=== PATIENT | female | born 1940 | race Caucasian/White ===

== ENCOUNTER 2016-06-12 11:58 | Outpatient (CLI) | payer MEDICARE, OTHER ==
[2016-06-12 13:01] LABS: Anion Gap 14 mmol/L (10-20); BUN (Urea Nitrogen) 26 mg/dL (9.8-20.1); Calc. Creatinine Clearance 0 mL/min (70-130); Calcium 9.2 mg/dL (7.8-10.44); Carbon Dioxide 30 mmol/L (23-31); Chloride 102 mmol/L (98-107); Estimated GFR-MDRD 25; Glucose 97 mg/dL (83-110); Potassium 3.6 mmol/L (3.5-5.1); Sodium 142 mmol/L (136-145)
== END 2016-06-12 11:59 | disposition home or self-care (01) ==
LOC: MADLAB 11:58
PROVIDERS: ATTEND Internal Medicine Nephrology
DX: N18.3 Chronic kidney disease, stage 3 (moderate) (principal)
CPT/HCPCS: 36415; 80048

== ENCOUNTER 2016-08-06 14:51 | Outpatient (CLI) | payer MEDICARE, OTHER ==
[2016-08-06 15:28] LABS: #Basophils 0.1 thou/uL (0.0-0.2); #Eosinphils 0.1 thou/uL (0.0-0.7); #Lymphocytes 1.8 thou/uL (1.20-3.40); #Monocytes 0.5 thou/uL (0.11-0.59); #Neutrophils 5.5 thou/uL (1.40-6.50); %Basophils 0.7 % (0.0-1.0); %Lymphocytes 22.4 % (21.0-51.0); %Monocytes 6.7 % (0.0-10.0); %Neutrophils 69.2 % (42.0-75.0); Hemoglobin 13.8 g/dL (12.0-16.0); Mean Corpuscular HGB CONC 32.8 g/dL (32.0-36.0); Mean Corpuscular Hemoglobin 32.6 pg (27.0-31.0); Mean Corpuscular Volume 99.1 fl (81.0-99.0); Mean Platelet Volume 6.3 fL (7.4-10.4); Platelet Count 275 thou/uL (130-400); RBC Distribution Width 12.7 % (11.5-14.5); Red Blood Cell (RBC) Count 4.23 mill/uL (4.20-5.40); White Blood Cell (WBC) Count 7.9 thou/uL (4.8-10.8)
[2016-08-06 15:33] LABS: Anion Gap 16 mmol/L (10-20); BUN (Urea Nitrogen) 26 mg/dL (9.8-20.1); Calc. Creatinine Clearance 0 mL/min (70-130); Calcium 9.7 mg/dL (7.8-10.44); Carbon Dioxide 28 mmol/L (23-31); Chloride 103 mmol/L (98-107); Estimated GFR-MDRD 26; Glucose 151 mg/dL (83-110); Phosphorus 3.7 mg/dL (2.3-4.7); Potassium 4.5 mmol/L (3.5-5.1); Sodium 142 mmol/L (136-145)
== END 2016-08-06 14:52 | disposition home or self-care (01) ==
LOC: MADLAB 14:51
PROVIDERS: ATTEND Internal Medicine Nephrology
DX: N18.4 Chronic kidney disease, stage 4 (severe) (principal)
CPT/HCPCS: 36415; 80048; 83970; 84100; 85025

== ENCOUNTER 2016-12-10 15:28 | Outpatient (CLI) | payer MEDICARE, OTHER ==
[2016-12-10 15:54] LABS: Anion Gap 19 mmol/L (10-20); BUN (Urea Nitrogen) 22 mg/dL (9.8-20.1); Calc. Creatinine Clearance 0 mL/min (70-130); Calcium 9.1 mg/dL (7.8-10.44); Carbon Dioxide 22 mmol/L (23-31); Chloride 104 mmol/L (98-107); Estimated GFR-MDRD 28; Glucose 95 mg/dL (83-110); Potassium 4.6 mmol/L (3.5-5.1); Sodium 140 mmol/L (136-145)
== END 2016-12-10 15:29 | disposition home or self-care (01) ==
LOC: MADLAB 15:28
PROVIDERS: ATTEND Internal Medicine Nephrology
DX: N18.4 Chronic kidney disease, stage 4 (severe) (principal)
CPT/HCPCS: 36415; 80048; 83970

== ENCOUNTER 2017-07-09 15:09 | Outpatient (CLI) | payer MEDICARE, OTHER ==
[2017-07-09 16:23] LABS: Anion Gap 15 mmol/L (10-20); BUN (Urea Nitrogen) 15 mg/dL (9.8-20.1); Calc. Creatinine Clearance 0 mL/min (70-130); Calcium 9.1 mg/dL (7.8-10.44); Carbon Dioxide 27 mmol/L (23-31); Chloride 102 mmol/L (98-107); Estimated GFR-MDRD 36; Glucose 146 mg/dL (83-110); Potassium 3.4 mmol/L (3.5-5.1); Sodium 141 mmol/L (136-145)
== END 2017-07-09 15:10 | disposition home or self-care (01) ==
LOC: MADLAB 15:09
PROVIDERS: ATTEND Internal Medicine Nephrology
DX: N18.3 Chronic kidney disease, stage 3 (moderate) (principal)
CPT/HCPCS: 36415; 80048

== ENCOUNTER 2018-02-12 08:41 | Outpatient (CLI) | payer MEDICARE, OTHER ==
--- NOTE | 2018-02-12 11:17 | ULT ---
COMPLETE BILATERAL RENAL ULTRASOUND: HISTORY: A 77-year-old female with a history of chronic kidney disease and back pain for six months. FINDINGS: The right kidney measures 7.6 x 3.1 x 3.3 cm. The left kidney measures 8.6 x 4.5 x 4.1 cm. No renal hydronephrosis. The bladder is nearly empty. Minimal diffuse cortical loss of both kidneys, partic ularly inferiorly. IMPRESSION: 1. No renal hydronephrosis. 2. Small, nearly empty bladder. POS: [facility]
== END 2018-02-12 08:42 | disposition home or self-care (01) ==
LOC: MADULT 08:41
PROVIDERS: ATTEND Internal Medicine Nephrology
DX: M54.9 Dorsalgia, unspecified (principal); N18.4 Chronic kidney disease, stage 4 (severe)
CPT/HCPCS: 76770

== ENCOUNTER 2018-03-09 17:42 | Emergency (ER) | payer MEDICARE, OTHER ==
[2018-03-09] MEDS ORDERED: Acetaminophen 500 MG TAB ONE (18:33)
[2018-03-09] MEDS ORDERED: Acetaminophen/Codeine 30-300mg Tablet ONE (18:33)
--- NOTE | 2018-03-09 19:02 | RAD ---
RADIOGRAPH LEFT HAND THREE VIEWS: History: 77-year-old female status post-acute traumatic injury to the left hand. 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 No fracture or dislocation. IMPRESSION: 1. 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 2. Otherwise normal. POS: [facility]
== END 2018-03-09 18:40 | disposition home or self-care (01) ==
LOC: MADERS 17:42
DX: S66.912A Strain of unspecified muscle, fascia and tendon at wrist and hand level, left hand, initial encounter (principal); K21.9 Gastro-esophageal reflux disease without esophagitis; E78.5 Hyperlipidemia, unspecified; I10 Essential (primary) hypertension; E27.40 Unspecified adrenocortical insufficiency; Z79.899 Other long term (current) drug therapy; X58.XXXA Exposure to other specified factors, initial encounter

== ENCOUNTER 2019-03-06 17:11 | Emergency (ER) | payer MEDICARE, OTHER ==
--- NOTE | 2019-03-06 18:27 | RAD ---
PORTABLE CHEST: 03/06/19 HISTORY: Syncope. Heart size appears slightly enlarged with atherosclerotic changes of the aorta. The lungs are clear o f any infiltrative process. No signs of failure. IMPRESSION: Mild cardiomegaly. POS: [facility]
== END 2019-03-06 18:43 | disposition home or self-care (01) ==
LOC: MADERS 17:11
DX: R53.1 Weakness (principal); K21.9 Gastro-esophageal reflux disease without esophagitis; E78.5 Hyperlipidemia, unspecified; E78.00 Pure hypercholesterolemia, unspecified; I10 Essential (primary) hypertension; E27.40 Unspecified adrenocortical insufficiency; Z79.899 Other long term (current) drug therapy; Z79.82 Long term (current) use of aspirin
CPT/HCPCS: 71045; 93005

== ENCOUNTER 2019-08-08 05:54 | Emergency (ER) | payer MEDICARE, OTHER ==
[2019-08-08] MEDS ORDERED: Acetaminophen 325 MG TAB ONE (06:31)
[2019-08-08] MEDS ORDERED: Metoprolol Tartrate 50 MG TAB ONE (07:50)
[2019-08-08] MEDS ORDERED: Aspirin Chewable 81 MG TAB ONE (07:50)
[2019-08-08] MEDS ORDERED: Furosemide 40 MG/4 ML VIAL ONE (07:50)
[2019-08-08 07:53] LABS: ALT (SGPT) 8 U/L (8-55); AST (SGOT) 15 U/L (5-34); Albumin 3.8 g/dL (3.4-4.8); Alkaline Phosphatase 51 U/L (40-110); Anion Gap 14 mmol/L (10-20); BUN (Urea Nitrogen) 15 mg/dL (9.8-20.1); Bilirubin, Total 0.7 mg/dL (0.2-1.2); Calc. Creatinine Clearance 0 mL/min (70-130); Calcium 8.6 mg/dL (7.8-10.44); Carbon Dioxide 26 mmol/L (23-31); Chloride 103 mmol/L (98-107); Estimated GFR-MDRD 34; Globulin 2.4 g/dL (2.4-3.5); Glucose 78 mg/dL (83-110); Potassium 3.6 mmol/L (3.5-5.1); Protein, Total 6.2 g/dL (6.0-8.3); Sodium 139 mmol/L (136-145)
[2019-08-08 07:55] LABS: Eosinophils 1 % (0-10); Hemoglobin 11.9 g/dL (12.0-16.0); Lymphocytes 16 % (21-51); MDiff Complete? YES; Mean Corpuscular HGB CONC 32.2 g/dL (32.0-36.0); Mean Corpuscular Hemoglobin 32.5 pg (27.0-31.0); Mean Corpuscular Volume 101.1 fL (78.0-98.0); Mean Platelet Volume 6.3 fL (7.4-10.4); Monocytes 8 % (0-10); Myelocyte 1 % (0-0); Neutrophil 64 % (42-75); Platelet Count 218 thou/uL (130-400); Platelet Morphology Comment Appears Adequate; RBC Distribution Width 13.1 % (11.5-14.5); Reactive Lymphocytes 10 % (0-10); Red Blood Cell (RBC) Count 3.67 mill/uL (4.20-5.40); White Blood Cell (WBC) Count 9.5 thou/uL (4.8-10.8)
[2019-08-08 08:02] LABS: CKMB 2.3 ng/mL (0-6.6)
[2019-08-08] MEDS ORDERED: Enoxaparin Sodium 80 MG/0.8 ML SYRINGE ONE ×2 (08:11→08:12)
--- NOTE | 2019-08-08 08:43 | RAD ---
PORTABLE CHEST: Date: 08/08/2019 HISTORY: Cough. COMPARISON: 03/06/19. FINDINGS/IMPRESSION: Mild cardiomegaly. Vascular and interstitial markings are prominent. Findings may represent mild inte rstitial congestion. No confluent infiltrate. I cannot exclude small effusions. POS: [facility]
== END 2019-08-08 08:36 | disposition home or self-care (01) ==
LOC: MADERS 05:54
DX: I21.4 Non-ST elevation (NSTEMI) myocardial infarction (principal); J20.9 Acute bronchitis, unspecified; K21.9 Gastro-esophageal reflux disease without esophagitis; E78.5 Hyperlipidemia, unspecified; E78.00 Pure hypercholesterolemia, unspecified; I10 Essential (primary) hypertension; E27.40 Unspecified adrenocortical insufficiency; Z79.899 Other long term (current) drug therapy; Z79.82 Long term (current) use of aspirin
CPT/HCPCS: 36415; 71045; 80053; 82550; 82553; 83605; 83880; 84484; 85025; 87040; 87804; 93005; 94760; 96372; 96374; 96375; J1650; J1940; J1956; J7620

== ENCOUNTER 2020-08-20 08:41 | Emergency (ER) | payer MEDICARE, OTHER ==
[2020-08-20 09:44] LABS: #Eosinphils 0.1 thou/uL (0.0-0.7); #Lymphocytes 1.8 thou/uL (1.20-3.40); #Monocytes 0.7 thou/uL (0.11-0.59); #Neutrophils 5.2 thou/uL (1.40-6.50); %Basophils 0.3 % (0.0-1.0); %Eosinophils 1.6 % (0.0-10.0); %Lymphocytes 23.3 % (21.0-51.0); %Monocytes 9.2 % (0.0-10.0); %Neutrophils 65.5 % (42.0-75.0); Hemoglobin 11.7 g/dL (12.0-16.0); Mean Corpuscular HGB CONC 32.2 g/dL (32.0-36.0); Mean Corpuscular Hemoglobin 31.9 pg (27.0-31.0); Mean Corpuscular Volume 99.1 fL (78.0-98.0); Mean Platelet Volume 5.4 fL (7.4-10.4); Platelet Count 217 thou/uL (130-400); RBC Distribution Width 13.2 % (11.5-14.5); Red Blood Cell (RBC) Count 3.66 mill/uL (4.20-5.40); White Blood Cell (WBC) Count 7.9 thou/uL (4.8-10.8)
[2020-08-20 10:00] LABS: ALT (SGPT) 13 U/L (8-55); AST (SGOT) 13 U/L (5-34); Albumin 3.7 g/dL (3.4-4.8); Alkaline Phosphatase 50 U/L (40-110); Anion Gap 14 mmol/L (10-20); BUN (Urea Nitrogen) 29 mg/dL (9.8-20.1); Bilirubin, Total 0.4 mg/dL (0.2-1.2); CK (CPK) 21 U/L (29-168); Calc. Creatinine Clearance 0 mL/min (70-130); Calcium 8.8 mg/dL (7.8-10.44); Carbon Dioxide 28 mmol/L (23-31); Chloride 103 mmol/L (98-107); Globulin 2.2 g/dL (2.4-3.5); Glucose 122 mg/dL (83-110); Potassium 4.5 mmol/L (3.5-5.1); Protein, Total 5.9 g/dL (5.8-8.1); Sodium 140 mmol/L (136-145)
[2020-08-20] MEDS ORDERED: Aspirin Chewable 81 MG TAB ONE (11:28)
[2020-08-20 12:57] LABS: SARS-CoV-2 NAA Rapid Test Not Detected (NotDetected)
== END 2020-08-20 15:20 | disposition short-term general hospital (02) ==
LOC: MADERS 08:41
DX: R07.9 Chest pain, unspecified (principal); M79.10 Myalgia, unspecified site; R94.6 Abnormal results of thyroid function studies; R53.1 Weakness; R00.2 Palpitations; E03.9 Hypothyroidism, unspecified; K58.9 Irritable bowel syndrome, unspecified; K21.9 Gastro-esophageal reflux disease without esophagitis; E78.5 Hyperlipidemia, unspecified; E78.00 Pure hypercholesterolemia, unspecified; I10 Essential (primary) hypertension; E27.1 Primary adrenocortical insufficiency; Z79.899 Other long term (current) drug therapy; Z79.82 Long term (current) use of aspirin
CPT/HCPCS: 0240U; 71045; 82550; 84484 ×2; 93005; 36415; 80053; 84443; 85025

== ENCOUNTER 2020-09-15 16:40 | Outpatient (CLI) | payer MEDICARE, OTHER | END 2020-09-15 16:41 | disposition home or self-care (01) | LOC: MADCT 16:40 | PROVIDERS: ATTEND Emergency Medicine | DX: M48.061 Spinal stenosis, lumbar region without neurogenic claudication (principal); M51.16 Intervertebral disc disorders with radiculopathy, lumbar region; I77.811 Abdominal aortic ectasia; I77.810 Thoracic aortic ectasia | CPT/HCPCS: 72131 ==

== ENCOUNTER 2020-12-08 10:08 | Outpatient (CLI) | payer MEDICARE, OTHER | END 2020-12-08 10:09 | disposition home or self-care (01) | LOC: MADLAB 10:08 → MADCT 10:09 | PROVIDERS: ATTEND Emergency Medicine | DX: M54.5 Low back pain (principal); M47.816 Spondylosis without myelopathy or radiculopathy, lumbar region; M47.817 Spondylosis without myelopathy or radiculopathy, lumbosacral region; S32.059D Unspecified fracture of fifth lumbar vertebra, subsequent encounter for fracture with routine healing; Z98.890 Other specified postprocedural states | CPT/HCPCS: 72131 ==

== ENCOUNTER 2020-12-21 10:27 | Outpatient (CLI) | payer MEDICARE, OTHER | END 2020-12-21 10:28 | disposition home or self-care (01) | LOC: MADLAB 10:27 | DX: S32.059D Unspecified fracture of fifth lumbar vertebra, subsequent encounter for fracture with routine healing (principal); R93.7 Abnormal findings on diagnostic imaging of other parts of musculoskeletal system; Z98.890 Other specified postprocedural states | CPT/HCPCS: 72131 ==

== ENCOUNTER 2021-02-07 12:38 | Outpatient (CLI) | payer MEDICARE, OTHER | END 2021-02-07 12:39 | disposition home or self-care (01) | LOC: MADCT 12:38 | PROVIDERS: ATTEND Neurological Surgery | DX: M54.5 Low back pain (principal); M43.16 Spondylolisthesis, lumbar region | CPT/HCPCS: 72131 ==

== ENCOUNTER 2021-03-23 14:49 | Outpatient (CLI) | payer MEDICARE, OTHER | END 2021-03-23 14:50 | disposition home or self-care (01) | LOC: MADCT 14:49 | PROVIDERS: ATTEND Neurological Surgery | DX: S32.059D Unspecified fracture of fifth lumbar vertebra, subsequent encounter for fracture with routine healing (principal); I77.811 Abdominal aortic ectasia; Z98.890 Other specified postprocedural states | CPT/HCPCS: 72131 ==

== ENCOUNTER 2021-08-01 13:34 | Outpatient (CLI) | payer MEDICARE, OTHER | END 2021-08-01 13:35 | disposition home or self-care (01) | LOC: MADCT 13:34 | PROVIDERS: ATTEND Neurological Surgery | DX: S32.050D Wedge compression fracture of fifth lumbar vertebra, subsequent encounter for fracture with routine healing (principal); M48.061 Spinal stenosis, lumbar region without neurogenic claudication; M47.816 Spondylosis without myelopathy or radiculopathy, lumbar region; M43.16 Spondylolisthesis, lumbar region; Z98.890 Other specified postprocedural states | CPT/HCPCS: 72131 ==

== ENCOUNTER 2021-10-12 11:51 | Outpatient (CLI) | payer MEDICARE, OTHER ==
[2021-10-12 12:16] LABS: #Eosinphils 0.1 thou/uL (0.0-0.7); #Lymphocytes 1.7 thou/uL (1.20-3.40); #Monocytes 0.5 thou/uL (0.11-0.59); #Neutrophils 2.5 thou/uL (1.40-6.50); %Basophils 0.6 % (0.0-1.0); %Lymphocytes 35.2 % (21.0-51.0); %Neutrophils 52.3 % (42.0-75.0); Hemoglobin 11.6 g/dL (12.0-16.0); Mean Corpuscular Hemoglobin 31.3 pg (27.0-31.0); Mean Corpuscular Volume 100.9 fL (78.0-98.0); Mean Platelet Volume 6.7 fL (7.4-10.4); Platelet Count 211 thou/uL (130-400); RBC Distribution Width 14.2 % (11.5-14.5); Red Blood Cell (RBC) Count 3.72 mill/uL (4.20-5.40); White Blood Cell (WBC) Count 4.7 thou/uL (4.8-10.8)
[2021-10-12 12:33] LABS: Anion Gap 15 mmol/L (10-20); BUN (Urea Nitrogen) 27 mg/dL (9.8-20.1); Calc. Creatinine Clearance 0 mL/min (70-130); Calcium 8.9 mg/dL (7.8-10.44); Carbon Dioxide 28 mmol/L (23-31); Chloride 103 mmol/L (98-107); Glucose 126 mg/dL (83-110); Phosphorus 4.1 mg/dL (2.3-4.7); Potassium 3.9 mmol/L (3.5-5.1); Sodium 142 mmol/L (136-145)
== END 2021-10-12 11:52 | disposition home or self-care (01) ==
LOC: MADLAB 11:51
PROVIDERS: ATTEND Internal Medicine Nephrology
DX: N18.4 Chronic kidney disease, stage 4 (severe) (principal)
CPT/HCPCS: 36415; 80048; 83970; 84100; 85025

== ENCOUNTER 2022-03-01 15:26 | Outpatient (CLI) | payer MEDICARE, OTHER | END 2022-03-01 15:27 | disposition home or self-care (01) | LOC: MADCT 15:26 | PROVIDERS: ATTEND Neurological Surgery | DX: M54.16 Radiculopathy, lumbar region (principal) | CPT/HCPCS: 72131 ==

== ENCOUNTER 2022-07-27 11:54 | Emergency (ER) | payer MEDICARE, OTHER | END 2022-07-27 13:52 | disposition home or self-care (01) | LOC: MADERS 11:54 | DX: M54.50 Low back pain, unspecified (principal); K21.9 Gastro-esophageal reflux disease without esophagitis; E78.00 Pure hypercholesterolemia, unspecified; I10 Essential (primary) hypertension; W18.30XA Fall on same level, unspecified, initial encounter; Z79.82 Long term (current) use of aspirin; Z79.899 Other long term (current) drug therapy | CPT/HCPCS: 72131; 72192 ==

== ENCOUNTER 2023-01-17 12:41 | Outpatient (CLI) | payer MEDICARE, OTHER | END 2023-01-17 12:42 | disposition home or self-care (01) | LOC: MADCT 12:41 | PROVIDERS: ATTEND Orthopaedic Surgery Orthopaedic Surgery of the Spine | DX: M43.16 Spondylolisthesis, lumbar region (principal); M51.36 Other intervertebral disc degeneration, lumbar region; M47.816 Spondylosis without myelopathy or radiculopathy, lumbar region; M48.061 Spinal stenosis, lumbar region without neurogenic claudication | CPT/HCPCS: 72131 ==

== ENCOUNTER 2023-04-30 14:12 | Outpatient (CLI) | payer MEDICARE, OTHER | END 2023-04-30 14:13 | disposition home or self-care (01) | LOC: MADRAD 14:12 | PROVIDERS: ATTEND Internal Medicine | DX: R05.9 Cough, unspecified (principal) | CPT/HCPCS: 71046 ==

== ENCOUNTER 2024-05-14 15:08 | Emergency (ER) | payer MEDICARE, BC | END 2024-05-14 16:36 | disposition home or self-care (01) | LOC: MADERS 15:08 | DX: S01.01XA Laceration without foreign body of scalp, initial encounter (principal); I10 Essential (primary) hypertension; W01.198A Fall on same level from slipping, tripping and stumbling with subsequent striking against other object, initial encounter | CPT/HCPCS: 99282 ==

== ENCOUNTER 2024-05-21 13:07 | Emergency (ER) | payer MEDICARE, BC ==
[2024-05-21] MEDS ORDERED: Boostrix 0.5 ML (Tdap) VIAL (>/=7 yrs of age) ONE (13:19)
== END 2024-05-21 13:27 | disposition home or self-care (01) ==
LOC: MADERS 13:07
DX: S01.01XD Laceration without foreign body of scalp, subsequent encounter (principal); I10 Essential (primary) hypertension; W18.30XD Fall on same level, unspecified, subsequent encounter
CPT/HCPCS: 90715